=== PATIENT | female | born 1990 | race Caucasian/White ===

== ENCOUNTER 2020-02-25 14:00 | Outpatient (RCR) | payer OTHER, SELFPAY ==
--- NOTE | 2019-12-23 14:49 | P.PNPSP_ITS ---
Subjective Subjective Date of Service: 12/23/19 Reason For Visit: depression Interim History: Pt presents for follow up. Has not started the guanfacine as ordered after last visit. reports she has been sick for over one week with fever, chills, nausea. tested negative for flu and COVID. Will be picking up rx today and starting. Reinforced baseline vitals and onnce a week X2. Pt verbalized understanding. 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 Medication Compliance: Yes Side effects from medications: No Review of Systems Constitutional: Denies body ache(s), Denies fatigue, Denies malaise and Reports night sweats Psychiatric: Reports anxiety, Reports difficulty concentrating and Reports irritability Endocrine: Denies fatigue Mental Status Exam Mental Status Exam Mood Description: Calm Affect Description: Calm Speech Pattern: Clear Memory Description: Intact Thought Content: positive for Intact and positive for Goal Oriented Depressive Symptoms: Increased Irritability, Feelings of Guilt and Unhappiness Assessment & Plan Assessment & Plan (1) Major depressive disorder, recurrent, moderate: Status: Acute Code(s): F33.1 - Major depressive disorder, recurrent, moderate Assessment and Plan: No scripts necessary at this time/ Follow up 2 weeks Greater than 50% of the session was spent on counseling and/or coordination of care Discharge Plan Discharge Attending provider: Alayna Vasquez Medications: No Action citalopram [Celexa] 20 mg tablet 20 mg PO DAILY RF: 0 lamotrigine [Lamictal] 25 mg tablet 75 mg PO DAILY RF: 0 clonazepam [Klonopin] 0.5 mg tablet 0.5 mg PO DAILY PRN (Reason: anxiety) RF: 0 famotidine [Pepcid AC] 20 mg tablet 20 mg PO BID RF: 0 guanfacine 1 mg tablet 1 mg PO BEDTIME RF: 0
--- NOTE | 2020-02-29 16:31 | HO.OPPROGNO ---
Subjective Subjective Date of Service: 02/25/20 Reason For Visit: depression Interim History: Patient reports difficulties at home related to children being home with remote learning--as she is also enrolled in school. States her anxiety is pretty consistently present and finds that she is using Klonopin with much more regularity. Has been taking guangacine, but does not note any improvement in her ability to focus (circumstances adding to this as well). reports she continues to have racing heart and is being referred to cardiology by PCP Informed patient that outpatient will be closing by 05/2019--will consider transferring care to PCP if PCP agreeable. Medication Compliance: Yes Side effects from medications: No Review of Systems Constitutional: Reports as per HPI and Reports no additional constitutional complaints Mental Status Exam Mental Status Exam Level of Consciousness: Awake, Appropriate and Alert Patient Behavior: Appropriate Mood Description: Anxious Affect Description: Anxious Speech Pattern: Clear Thought Process: Rumination and Goal Oriented Thought Content: positive for Intact Depressive Symptoms: Increased Anxiety and Difficulty Concentrating Judgement: Good Discharge Plan Discharge Attending provider: Alayna Vasquez Medications: No Action famotidine [Pepcid AC] 20 mg tablet 20 mg PO BID RF: 0 citalopram [Celexa] 20 mg tablet 20 mg PO DAILY Qty: 30 RF: 4 clonazepam [Klonopin] 0.5 mg tablet 0.5 mg PO DAILY PRN (Reason: anxiety) Qty: 15 RF: 5 lamotrigine [Lamictal] 25 mg tablet 75 mg PO DAILY Qty: 90 RF: 4 guanfacine 1 mg tablet 2 mg PO BEDTIME Qty: 30 RF: 4 Assessment & Plan Assessment & Plan (1) Major depressive disorder, recurrent, moderate: Status: Acute Code(s): F33.1 - Major depressive disorder, recurrent, moderate Assessment and Plan: Increased guanfacine to 2mg QHS Will follow up with PCP reagrding possibility of transferring care Greater than 50% of the session was spent on counseling and/or coordination of care Telehealth Telehealth Location of provider rendering services: practice address Location of patient: address on file Patient Identification confirmed using: Name, : Yes Telehealth method: voice only Patient verbally consented to treatment: Yes Patient verbally consented to billing insurance company: Yes Time spent with patient (mins): 18
== END 2020-03-11 23:55 | disposition home or self-care (01) ==
LOC: HO.PAOS 14:00
PROVIDERS: Visit Provider Nurse Practitioner Psychiatric/Mental Health
DX: F33.1 Major depressive disorder, recurrent, moderate (principal); Z79.899 Other long term (current) drug therapy

== ENCOUNTER 2023-07-26 20:03 | Emergency (ER) | payer MEDICAID, SELFPAY ==
--- NOTE | ~2023-07-26 | XR_ITS ---
EXAMINATION: XR CHEST CLINICAL INFORMATION: Cough and chest pain COMPARISON: Previous chest x-ray October 2018 TECHNIQUE: Frontal view of the chest was obtained. FINDINGS: No significant abnormality is noted involving the heart, lungs, mediastinum, bony thorax or soft tissues. XR/XR chest 1V IMPRESSION: Unremarkable examination.
[2023-07-26 20:06] VITALS: BP 114/73; PULSE 91; RESP 18; TEMP 36.7; O2SAT 99; BMI 27.5
--- NOTE | 2023-07-26 20:12 | ECG_ITS ---
Test Reason : SOB Blood Pressure : / mmHG Vent. Rate : 071 BPM Atrial Rate : 071 BPM P-R Int : 162 ms QRS Dur : 082 ms QT Int : 394 ms P-R-T Axes : 076 078 062 degrees QTc Int : 428 ms Normal sinus rhythm with sinus arrhythmia Normal ECG When compared with ECG of 14-OCT-2018 18:52, No significant change was found Referred By: Generic ED Physician Electronically Signed By:CADY MANNING MD
--- NOTE | 2023-07-26 20:40 | ED_ITS ---
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 no fever no chills no change in atmosphere at home Related Data Home Medications ?Medication ?Instructions ?Recorded ?Confirmed famotidine 20 mg tablet (Pepcid AC) 20 mg PO BID 12/23/19 12/23/19 Previous Rx's ?Medication ?Instructions ?Recorded citalopram 20 mg tablet (Celexa) 20 mg PO DAILY #30 tabs 02/25/20 clonazepam 0.5 mg tablet (Klonopin) 0.5 mg PO DAILY PRN anxiety #15 02/25/20 tabs guanfacine 1 mg tablet 2 mg (2 x 1 mg) PO BEDTIME #30 tabs 02/25/20 lamotrigine 25 mg tablet (Lamictal) 75 mg (3 x 25 mg) PO DAILY #90 tabs 02/25/20 benzonatate 200 mg capsule 200 mg PO TID PRN cough #30 caps 07/26/23 cefuroxime axetil 500 mg tablet 500 mg PO BID 7 days #14 tabs 07/26/23 prednisone 20 mg tablet 40 mg (2 x 20 mg) PO DAILY #10 tabs 07/26/23 Allergies Allergy/AdvReac Type Severity Reaction Status Date / Time No Known Allergies Allergy Verified 07/26/23 20:11 Review of Systems 2 Review of Systems: Yes all other systems are reviewed and are negative [facility] Social History Social History Advance Directives: No Advance Directives Information Provided: No Do you have a plan to hurt others: No Plan Physical Exam ED Vital Signs: Vital Signs - 24 hr 07/26/23 20:06 07/26/23 22:38 07/26/23 22:41 Temperature 98.0 F 97.9 F Pulse Rate 91 99 Respiratory Rate 18 16 Blood Pressure 114/73 120/77 Pulse Oximetry 99 98 98 Oxygen Delivery Method Room Air Room Air Room Air 07/26/23 23:43 Temperature 97.9 F Pulse Rate 75 Respiratory Rate 16 Blood Pressure 115/71 Pulse Oximetry 98 Oxygen Delivery Method Room Air BMI result Body Mass Index 27.5 Appearance: Alert. Oriented X3. No acute distress. Eyes: No pallor or ENT: Pharynx normal. Oral Mucosa moist Neck: Normal inspection. Neck supple. CVS: Normal heart rate and rhythm. Pulses normal. Respiratory: No respiratory distress. Equal air entry bilateral, bilateral prolonged expiration with dry cough Abdomen: Soft and nontender. Bowel sounds are present, Skin: Skin warm and dry. Normal skin color. Normal skin turgor. Extremities: No lower extremity edema. No calf tenderness Neuro: Oriented X 3. No motor deficit. Course Course Course Narrative: RME performed by Zee Araya PA-C. Patient is a 33 year old assigned female at presenting to the emergency department with a cough and congestion. Detailed physical exam and review of systems are deferred to the superintendent custodian janitor. EKG, labs, imaging, and swabs ordered. Patient placed back in the waiting room pending room availability and results. Medications Administered Discontinued Medications Generic Name Dose Route Start Last Admin Trade Name Freq PRN Reason Stop Dose Admin Cefuroxime Axetil 500 mg 07/26/23 23:21 07/26/23 23:36 Cefuroxime Axetil 500 Mg Tablet PO 07/26/23 23:22 500 mg ONCE ONE Administration Dexamethasone 10 mg 07/26/23 23:21 07/26/23 23:36 Dexamethasone 2 Mg Tablet PO 07/26/23 23:22 10 mg ONCE ONE Administration Guaifenesin/Codeine Phosphate 10 ml 07/26/23 23:21 07/26/23 23:36 Guaifen/Codeine Sf 200/20/10ml 10 Ml Liquid PO 07/26/23 23:22 10 ml ONCE ONE Administration Medical Decision Making Lab Data [facility] Lab Attestation statement: I reviewed the patient's lab results. 07/26/23 20:49 07/26/23 20:49 Labs: Lab Results 07/26/23 Range/Units 20:49 WBC 6.8 (4.8-10.8) X10*3/uL RBC 4.17 L (4.20-5.50) X10*6/uL Hgb 11.7 L (12.0-16.0) g/dl Hct 35.1 L (37.0-47.0) % MCV 84.2 (80.0-98.0) fL MCH 28.1 (27.0-33.0) pg MCHC 33.3 (31.0-35.0) g/dl RDW 13.9 (11.0-16.0) % Plt Count 229 (160-400) X10*3/uL MPV 10.6 (9.4-12.3) fL Immature Gran % (Auto) 0.1 (0.0-0.4) % Neut % (Auto) 62.5 (45-73) % Lymph % (Auto) 31.1 (20-40) % [place] % (Auto) 3.4 (2-11) % Eos % (Auto) 2.5 (0-4) % Baso % (Auto) 0.4 (0-2) % Lymph # (Auto) 2.1 (1.2-4.9) X10*3/uL [place] # (Auto) 0.2 (0.1-1.2) X10*3/uL Eos # (Auto) 0.2 (0.0-0.4) X10*3/uL Baso # (Auto) 0.0 (0.0-0.2) X10*3/uL Abs Immat Gran (auto) 0.01 (0.00-0.03) X10*3/uL Absolute Neuts (auto) 4.2 (2.0-8.3) x10*3/uL Absolute Nucleated RBC 0.000 (0.0-0.012) X10*3/uL Nucleated RBC % (auto) 0.0 (0.0-0.2) /100WBC Sodium 140 (135-145) mmol/L Potassium 4.0 (3.3-5.1) mmol/L Chloride 106 (96-108) mmol/L Carbon Dioxide 27 (22-29) mmol/L Anion Gap 11 L (12-20) BUN 9 (9-16) mg/dL Creatinine 0.88 (0.5-1.4) mg/dL Estim Creat Clear Calc 87.0 Estimated GFR > 60 Random Glucose 107 (60-115) mg/dL Calcium 9.1 (8.4-10.2) mg/dL Total Bilirubin 0.2 (0.0-1.0) mg/dL AST 15 (5-31) U/L ALT 11 (0-31) U/L Alkaline Phosphatase 48 (39-117) U/L Troponin I High Sens < 2.7 (<3.5-17.0) ng/L Total Protein 7.3 (6.5-8.0) g/dL Albumin 4.5 (3.5-5.0) g/dL COVID-19 ([place]) Negative (Negative) COVID-19 Clin Com See Note Influenza Type A ([place]) Negative (Negative) Influenza Type B ([place]) Negative (Negative) Influenza A & B Note See Note Independent Interpretation I performed an independent interpretation of an: Plain X-Ray Radiology Impression Discussion of test interpretation with radiology: I have reviewed the radiologist's reading. Discharge Plan Discharge Clinical Impression: Bronchitis Patient Disposition: Home, Self-Care Instructions: Acute Bronchitis (ED) Additional Instructions: Take antibiotics as prescribed Prednisone and cough drops as prescribed Continue to use albuterol inhaler 2 puffs every 4-6 hours as needed Follow with your PCP Prescriptions: New benzonatate 200 mg capsule 200 mg PO TID PRN (Reason: cough) Qty: 30 0RF prednisone 20 mg tablet 40 mg PO DAILY Qty: 10 0RF cefuroxime axetil 500 mg tablet 500 mg PO BID 7 Days Qty: 14 0RF No Action famotidine [Pepcid AC] 20 mg tablet 20 mg PO BID citalopram [Celexa] 20 mg tablet 20 mg PO DAILY Qty: 30 4RF clonazepam [Klonopin] 0.5 mg tablet 0.5 mg PO DAILY PRN (Reason: anxiety) Qty: 15 5RF lamotrigine [Lamictal] 25 mg tablet 75 mg PO DAILY Qty: 90 4RF guanfacine 1 mg tablet 2 mg PO BEDTIME Qty: 30 4RF Stand Alone Forms: Work/School Release Interventions: ED Discharge Assessment Last Done: 07/26/23 23:43 Discharge Date/Time: 07/26/23 23:44 Print Language: Dutch
[2023-07-26 20:55] LABS: MANUAL DIFF FLAG NO
[2023-07-26 20:56] LABS: Basophils Percent Auto 0.4 % (0-2); Eosinophils Absolute Auto 0.2 X10*3/uL (0.0-0.4); Eosinophils Percent Auto 2.5 % (0-4); Hematocrit 35.1 % (37.0-47.0); Hemoglobin 11.7 g/dl (12.0-16.0); Imm Gran Abs Auto 0.01 X10*3/uL (0.00-0.03); Imm Gran Pct Auto 0.1 % (0.0-0.4); Lymphocytes Absolute Auto 2.1 X10*3/uL (1.2-4.9); Lymphocytes Percent Auto 31.1 % (20-40); Mean Corpuscular HGB Conc 33.3 g/dl (31.0-35.0); Mean Corpuscular Hemoglobin 28.1 pg (27.0-33.0); Mean Corpuscular Volume 84.2 fL (80.0-98.0); Mean Platelet Volume 10.6 fL (9.4-12.3); Monocytes Absolute Auto 0.2 X10*3/uL (0.1-1.2); Monocytes Percent Auto 3.4 % (2-11); Neutrophils Absolute Auto 4.2 x10*3/uL (2.0-8.3); Neutrophils Percent Auto 62.5 % (45-73); Platelet Count 229 X10*3/uL (160-400); Red Blood Count 4.17 X10*6/uL (4.20-5.50); Red Cell Distribution Width 13.9 % (11.0-16.0); White Blood Count 6.8 X10*3/uL (4.8-10.8)
[2023-07-26 21:14] LABS: Alanine Aminotransferase 11 U/L (0-31); Albumin Level 4.5 g/dL (3.5-5.0); Alkaline Phosphatase 48 U/L (39-117); Anion Gap 11 (12-20); Aspartate Amino Transferase 15 U/L (5-31); Bilirubin Total 0.2 mg/dL (0.0-1.0); Blood Urea Nitrogen 9 mg/dL (9-16); COVID-19 Test Negative (Negative); Calcium 9.1 mg/dL (8.4-10.2); Carbon Dioxide 27 mmol/L (22-29); Chloride 106 mmol/L (96-108); Estimated Glomerular Filt Rate > 60; Glucose Random 107 mg/dL (60-115); IDNOW Serial# 08D9AD1C; IDNOW Serial# 152EDE1D; Influenza A Negative (Negative); Influenza B2 Negative (Negative); Sodium 140 mmol/L (135-145); Total Protein 7.3 g/dL (6.5-8.0)
[2023-07-26 21:23] LABS: Troponin-I High Sensitivity < 2.7 ng/L (<3.5-17.0)
[2023-07-26 22:38] VITALS: O2SAT 98
[2023-07-26 22:41] VITALS: BP 120/77; PULSE 99; RESP 16; TEMP 36.6; O2SAT 98
[2023-07-26] MEDS: guaiFEN/Codeine SF 200/20/10ML 10 ML LIQUID PO (23:36)
[2023-07-26] MEDS: cefuroxime axetiL 500 MG TABLET PO (23:36)
[2023-07-26] MEDS: dexAMETHasone 2 MG TABLET 10 MG PO (23:36)
[2023-07-26 23:43] VITALS: BP 115/71; PULSE 75; RESP 16; TEMP 36.6; O2SAT 98
== END 2023-07-26 23:44 | disposition home or self-care (01) ==
PROVIDERS: Emergency Provider Internal Medicine
DX: J40 Bronchitis, not specified as acute or chronic (principal); Z11.52 Encounter for screening for COVID-19
CPT/HCPCS: 71045; 80053; 84484; 85025; 87502; 87635; 93005; 99283; 99285; J8540

== ENCOUNTER → 2023-07-26 20:12 | Outpatient (BNV) | payer MEDICAID, SELFPAY | PROVIDERS: Emergency Provider Internal Medicine; Visit Provider Internal Medicine Cardiovascular Disease | DX: R06.02 Shortness of breath (principal) | CPT/HCPCS: 93010 ==

== ENCOUNTER 2023-12-29 16:35 | Emergency (ER) | payer MEDICAID, SELFPAY ==
--- NOTE | ~2023-12-29 | CT_ITS ---
EXAMINATION: CT HEAD WITHOUT CONTRAST CLINICAL INFORMATION: Left facial numbness COMPARISON: None available. TECHNIQUE: Contiguous axial imaging was performed from the skull base to vertex without intravenous administration of contrast. This CT examination was performed using dose optimization techniques as appropriate, variously including the following: *Automated exposure control *Adjustment of mA and/or kV according to patient size (this includes techniques or standardized protocols for targeted exams where dose is matched to indication/reason for exam; i.e. extremities or head) *Use of iterative reconstruction technique DLP: 642 mGy-cm RESULTS: There is no evidence of acute intracranial hemorrhage, acute large vessel infarct, midline shift or mass effect. The harry-white differentiation is preserved. The ventricles and sulci are within normal limits in size and configuration. There is no evidence of hydrocephalus. There are no extraaxial collections. Osseous structures are intact. Paranasal sinuses and mastoid air cells are well aerated. CT/CT head/brain wo IV con IMPRESSION: Unremarkable non-contrast CT of the brain. Electronically signed by: Michelle Maria MD 12/29/2023 05:36 PM EDT
[2023-12-29 16:36] VITALS: BP 113/82; PULSE 89; RESP 18; TEMP 37.1; O2SAT 98; BMI 29.2
--- NOTE | 2023-12-29 16:38 | ED_ITS ---
HPI - Skin/Abscess/Foreign Bdy General Chief complaint: General Medical Stated complaint: shingles on face?? Time Seen by Provider: 12/29/23 21:07 Source: patient Mode of arrival: ambulatory Limitations: no limitations History of Present Illness ED Provider: breanna BYNUM narrative: Patient otherwise healthy noticed vesicular rash on the left lower change with pain in the left side of the face since earlier today no history of shingles in the past Related Data Home Medications ?Medication ?Instructions ?Recorded ?Confirmed famotidine 20 mg tablet (Pepcid AC) 20 mg PO BID 12/23/19 12/23/19 Previous Rx's ?Medication ?Instructions ?Recorded citalopram 20 mg tablet (Celexa) 20 mg PO DAILY #30 tabs 02/25/20 clonazepam 0.5 mg tablet (Klonopin) 0.5 mg PO DAILY PRN anxiety #15 02/25/20 tabs guanfacine 1 mg tablet 2 mg (2 x 1 mg) PO BEDTIME #30 tabs 02/25/20 lamotrigine 25 mg tablet (Lamictal) 75 mg (3 x 25 mg) PO DAILY #90 tabs 02/25/20 benzonatate 200 mg capsule 200 mg PO TID PRN cough #30 caps 07/26/23 cefuroxime axetil 500 mg tablet 500 mg PO BID 7 days #14 tabs 07/26/23 prednisone 20 mg tablet 40 mg (2 x 20 mg) PO DAILY #10 tabs 07/26/23 ibuprofen 600 mg tablet 600 mg PO Q6H PRN fever or pain 12/29/23 #30 tabs valacyclovir 1 gram tablet 1,000 mg PO TID #20 tabs 12/29/23 (Valtrex) Allergies Allergy/AdvReac Type Severity Reaction Status Date / Time No Known Allergies Allergy Verified 12/29/23 16:40 Review of Systems 2 Review of Systems: Yes all other systems are reviewed and are negative PMFSH Social History Social History Smoked in Last 30 Days: No Use of substances other than those prescribed or required for medical reasons: No Advance Directives: No Advance Directives Information Provided: No Do you have a plan to hurt others: No Plan Physical Exam 2 Vital Signs: Vital Signs: Last Vital Signs Temp 97.7 F 12/29/23 21:40 Pulse 72 12/29/23 21:40 Resp 18 12/29/23 21:40 BP 115/80 12/29/23 21:40 Pulse Ox 98 12/29/23 21:40 O2 Del Method Room Air 12/29/23 21:40 BMI result Body Mass Index 29.2 Appearance: Alert. Oriented X3. No acute distress. ENT: Pharynx normal. Oral Mucosa moist vesicular rash left side of the chin Neck: Normal inspection. Neck supple. CVS: Normal heart rate and rhythm. Pulses normal. Respiratory: No respiratory distress. Equal air entry bilateral, no wheezing/rales/rhonchi Skin: Skin warm and dry. Normal skin color. Normal skin turgor. Extremities: No lower extremity edema. Neuro: Oriented X 3. Course Course Course Narrative: This is a Rapid Medical Exam performed in triage by Justina Duenas PA-C. Full HPI, ROS and PE to be performed by primary ED provider. 33-year-old female with no significant past medical history presenting to the ED c/o left facial tingling/numbness noted this morning at 09:30 since waking w/ radiation to scalp w/ L eye irritation and blurry vision. Also feels like L ear in involved. PE: Acne noted to left chin which patient reports is new. Cranial nerves intact. No other focal deficits. No crusted over lesions or open sores Plan: EKG, labs, head CT Medications Administered Discontinued Medications Generic Name Dose Route Start Last Admin Trade Name Freq PRN Reason Stop Dose Admin Valacyclovir HCl 1,000 mg 12/29/23 21:23 12/29/23 21:33 Valacyclovir Hcl 1,000 Mg Tablet PO 12/29/23 21:24 1,000 mg ONCE ONE Administration Medical Decision Making Medical Decision Making [facility] Narrative: Patient's herpetic rash will prescribe acyclovir Lab Data 12/29/23 17:07 12/29/23 17:07 Labs: Lab Results 12/29/23 Range/Units 17:07 WBC 9.6 (4.8-10.8) X10*3/uL RBC 3.92 L (4.20-5.50) X10*6/uL Hgb 10.9 L (12.0-16.0) g/dl Hct 33.5 L (37.0-47.0) % MCV 85.5 (80.0-98.0) fL MCH 27.8 (27.0-33.0) pg MCHC 32.5 (31.0-35.0) g/dl RDW 14.1 (11.0-16.0) % Plt Count 235 (160-400) X10*3/uL MPV 10.7 (9.4-12.3) fL Immature Gran % (Auto) 0.4 (0.0-0.4) % Neut % (Auto) 57.1 (45-73) % Lymph % (Auto) 35.3 (20-40) % [place] % (Auto) 6.4 (2-11) % Eos % (Auto) 0.4 (0-4) % Baso % (Auto) 0.4 (0-2) % Lymph # (Auto) 3.4 (1.2-4.9) X10*3/uL [place] # (Auto) 0.6 (0.1-1.2) X10*3/uL Eos # (Auto) 0.0 (0.0-0.4) X10*3/uL Baso # (Auto) 0.0 (0.0-0.2) X10*3/uL Abs Immat Gran (auto) 0.04 H (0.00-0.03) X10*3/uL Absolute Neuts (auto) 5.5 (2.0-8.3) x10*3/uL Absolute Nucleated RBC 0.000 (0.0-0.012) X10*3/uL Nucleated RBC % (auto) 0.0 (0.0-0.2) /100WBC PT 11.0 (10.9-12.4) SEC INR 0.9 (0.9-1.1) Sodium 138 (135-145) mmol/L Potassium 3.5 (3.3-5.1) mmol/L Chloride 103 (96-108) mmol/L Carbon Dioxide 26 (22-29) mmol/L Anion Gap 13 (12-20) BUN 19 H (9-16) mg/dL Creatinine 0.87 (0.5-1.4) mg/dL Estim Creat Clear Calc 90.7 Estimated GFR > 60 Random Glucose 96 (60-115) mg/dL Calcium 8.6 (8.4-10.2) mg/dL Magnesium 2.2 (1.6-2.6) mg/dL Total Bilirubin 0.3 (0.0-1.0) mg/dL Direct Bilirubin 0.1 (0.0-0.5) mg/dL AST 13 (5-31) U/L ALT 14 (0-31) U/L Alkaline Phosphatase 43 (39-117) U/L Total Protein 6.6 (6.5-8.0) g/dL Albumin 4.3 (3.5-5.0) g/dL Urine Test NEGATIVE (NEGATIVE) Influenza Type A (PCR) NEGATIVE (Negative) Influenza Type B (PCR) NEGATIVE (Negative) RSV RNA Qual (PCR) NEGATIVE (Negative) SARS-CoV-2 RNA (RT-PCR) NEGATIVE (Negative) Discharge Plan Discharge Clinical Impression: Herpes zoster Patient Disposition: Home, Self-Care Instructions: Shingles (ED) Additional Instructions: Take medication as prescribed for 7 days Care as advised ibuprofen for pain Prescriptions: New valacyclovir [Valtrex] 1 gram tablet 1,000 mg PO TID Qty: 20 0RF ibuprofen 600 mg tablet 600 mg PO Q6H PRN (Reason: fever or pain) Qty: 30 0RF No Action famotidine [Pepcid AC] 20 mg tablet 20 mg PO BID citalopram [Celexa] 20 mg tablet 20 mg PO DAILY Qty: 30 4RF clonazepam [Klonopin] 0.5 mg tablet 0.5 mg PO DAILY PRN (Reason: anxiety) Qty: 15 5RF lamotrigine [Lamictal] 25 mg tablet 75 mg PO DAILY Qty: 90 4RF guanfacine 1 mg tablet 2 mg PO BEDTIME Qty: 30 4RF benzonatate 200 mg capsule 200 mg PO TID PRN (Reason: cough) Qty: 30 0RF prednisone 20 mg tablet 40 mg PO DAILY Qty: 10 0RF cefuroxime axetil 500 mg tablet 500 mg PO BID 7 Days Qty: 14 0RF Interventions: ED Discharge Assessment Last Done: 12/29/23 21:40 Discharge Date/Time: 12/29/23 21:40 Print Language: Nigerian
--- NOTE | 2023-12-29 16:42 | ECG_ITS ---
Test Reason : LEFT FACIAL NUMBNESS Blood Pressure : / mmHG Vent. Rate : 076 BPM Atrial Rate : 076 BPM P-R Int : 152 ms QRS Dur : 076 ms QT Int : 366 ms P-R-T Axes : 074 067 052 degrees QTc Int : 411 ms Normal sinus rhythm Normal ECG When compared with ECG of 26-JUL-2023 21:30, No significant change was found Referred By: Justina Duenas Electronically Signed By:HIREN VINES
[2023-12-29 17:16] LABS: MANUAL DIFF FLAG NO
[2023-12-29 17:30] LABS: Alanine Aminotransferase 14 U/L (0-31); Albumin Level 4.3 g/dL (3.5-5.0); Alkaline Phosphatase 43 U/L (39-117); Anion Gap 13 (12-20); Aspartate Amino Transferase 13 U/L (5-31); Bilirubin Direct 0.1 mg/dL (0.0-0.5); Bilirubin Total 0.3 mg/dL (0.0-1.0); Blood Urea Nitrogen 19 mg/dL (9-16); Calcium 8.6 mg/dL (8.4-10.2); Carbon Dioxide 26 mmol/L (22-29); Chloride 103 mmol/L (96-108); Creatinine Clr Calc Pharmacy 90.7; Estimated Glomerular Filt Rate > 60; Glucose Random 96 mg/dL (60-115); Magnesium 2.2 mg/dL (1.6-2.6); Potassium 3.5 mmol/L (3.3-5.1); Sodium 138 mmol/L (135-145); Total Protein 6.6 g/dL (6.5-8.0)
[2023-12-29 17:31] LABS: UPreg QC Valid YES; Urine Pregnancy NEGATIVE (NEGATIVE)
[2023-12-29 17:35] LABS: INTERNATIONAL NORM RATIO 0.9 (0.9-1.1)
[2023-12-29 17:40] LABS: Basophils Percent Auto 0.4 % (0-2); Eosinophils Percent Auto 0.4 % (0-4); Hematocrit 33.5 % (37.0-47.0); Hemoglobin 10.9 g/dl (12.0-16.0); Imm Gran Abs Auto 0.04 X10*3/uL (0.00-0.03); Imm Gran Pct Auto 0.4 % (0.0-0.4); Lymphocytes Absolute Auto 3.4 X10*3/uL (1.2-4.9); Lymphocytes Percent Auto 35.3 % (20-40); Mean Corpuscular HGB Conc 32.5 g/dl (31.0-35.0); Mean Corpuscular Hemoglobin 27.8 pg (27.0-33.0); Mean Corpuscular Volume 85.5 fL (80.0-98.0); Mean Platelet Volume 10.7 fL (9.4-12.3); Monocytes Absolute Auto 0.6 X10*3/uL (0.1-1.2); Monocytes Percent Auto 6.4 % (2-11); Neutrophils Absolute Auto 5.5 x10*3/uL (2.0-8.3); Neutrophils Percent Auto 57.1 % (45-73); Platelet Count 235 X10*3/uL (160-400); Red Blood Count 3.92 X10*6/uL (4.20-5.50); Red Cell Distribution Width 14.1 % (11.0-16.0); White Blood Count 9.6 X10*3/uL (4.8-10.8)
[2023-12-29 18:06] LABS: Influenza A PCR NEGATIVE (Negative); Influenza B PCR NEGATIVE (Negative); Resp Syncy Virus RNA Qual PCR NEGATIVE (Negative); SARS COV2 PCR INHOUSE NEGATIVE (Negative)
--- NOTE | 2023-12-29 18:55 | PC.NURSE ---
report from Cristal PISANO, aaume care of pt at this time
[2023-12-29 19:10] VITALS: BP 109/70; PULSE 72; RESP 16; TEMP 36.5; O2SAT 99
[2023-12-29] MEDS: valACYclovir HCL 1,000 MG TABLET 1000 MG PO (21:33)
[2023-12-29 21:40] VITALS: BP 115/80; PULSE 72; RESP 18; TEMP 36.5; O2SAT 98
[2023-12-31 11:03] LABS: Lyme Abs Screen <0.90 index
== END 2023-12-29 21:40 | disposition home or self-care (01) ==
PROVIDERS: Physician Assistant; Emergency Provider Internal Medicine
DX: B02.9 Zoster without complications (principal); Z79.899 Other long term (current) drug therapy
CPT/HCPCS: 0241U; 70450; 80048; 80076; 81025; 83735; 85025; 85610; 86617; 86618; 93005; 99284

== ENCOUNTER → 2023-12-29 16:42 | Outpatient (BNV) | payer MEDICAID, SELFPAY | PROVIDERS: Emergency Provider Internal Medicine; Visit Provider Internal Medicine | DX: G51.9 Disorder of facial nerve, unspecified (principal) | CPT/HCPCS: 93010 ==

== ENCOUNTER 2024-06-12 17:43 | Emergency (ER) | payer MEDICAID, SELFPAY ==
--- NOTE | ~2024-06-12 | XR_ITS ---
CLINICAL HISTORY: chest pain Chest Radiographs, 2 views Comparison: 07/26/23 Findings: No cardiomegaly. Normal mediastinal contours. No pneumothorax. No opacity. No pleural effusion. Normal upper abdomen. No acute fracture. Impression: No acute findings. This document has been electronically signed by: Asha Yan MD on 06/12/2024 19:22:11
--- NOTE | 2024-06-12 17:45 | ECG_ITS ---
Test Reason : CHEST PAIN Blood Pressure : */* mmHG Vent. Rate : 118 BPM Atrial Rate : 118 BPM P-R Int : 134 ms QRS Dur : 74 ms QT Int : 314 ms P-R-T Axes : 77 81 48 degrees QTcB Int : 440 ms Sinus tachycardia Nonspecific ST abnormality Abnormal ECG When compared with ECG of 29-Dec-2023 16:53, Vent. rate has increased by 42 bpm Non-specific change in ST segment in Inferior leads Referred By: Generic ED Physician Electronically Signed By: HIREN VINES
[2024-06-12 18:00] VITALS: BP 115/78; PULSE 94; RESP 20; TEMP 37.4; O2SAT 98; BMI 27.4
--- NOTE | 2024-06-12 18:01 | ED.GENADULT ---
HPI - General Adult General Chief complaint: Chest Pain Stated complaint: chest /left arm pain Time Seen by Provider: 06/12/24 21:45 History of Present Illness ED Provider: Dr. Terrance Lima HPI narrative: 34-year-old female who presents emergency department for evaluation of palpitations x4 days. When I went into the room the patient had eloped. Related Data Home Medications ?Medication ?Instructions ?Recorded ?Confirmed famotidine 20 mg tablet (Pepcid AC) 20 mg PO BID 12/23/19 12/23/19 Previous Rx's ?Medication ?Instructions ?Recorded citalopram 20 mg tablet (Celexa) 20 mg PO DAILY #30 tabs 02/25/20 clonazepam 0.5 mg tablet (Klonopin) 0.5 mg PO DAILY PRN anxiety #15 02/25/20 tabs guanfacine 1 mg tablet 2 mg (2 x 1 mg) PO BEDTIME #30 tabs 02/25/20 lamotrigine 25 mg tablet (Lamictal) 75 mg (3 x 25 mg) PO DAILY #90 tabs 02/25/20 benzonatate 200 mg capsule 200 mg PO TID PRN cough #30 caps 07/26/23 cefuroxime axetil 500 mg tablet 500 mg PO BID 7 days #14 tabs 07/26/23 prednisone 20 mg tablet 40 mg (2 x 20 mg) PO DAILY #10 tabs 07/26/23 ibuprofen 600 mg tablet 600 mg PO Q6H PRN fever or pain 12/29/23 #30 tabs valacyclovir 1 gram tablet 1,000 mg PO TID #20 tabs 12/29/23 (Valtrex) Allergies Allergy/AdvReac Type Severity Reaction Status Date / Time No Known Allergies Allergy Verified 06/12/24 18:05 [facility] Social History Social History Do you have a plan to hurt others: No Plan Physical Exam ED Vital Signs: Vital Signs - 24 hr 06/12/24 18:00 06/12/24 20:47 Temperature 99.4 F Pulse Rate 94 76 Respiratory Rate 20 21 H Blood Pressure 115/78 103/72 Pulse Oximetry 98 99 Oxygen Delivery Method Room Air Room Air BMI result Body Mass Index 27.4 Course Course Course Narrative: This is a rapid medical exam performed by Omkar Jerez NP: Additional HPI, ROS, PE not included below will be deferred to primary provider. 06/12/24 18:02 Patient is a 34-year-old female presenting with complaint of chest pain, palpitations, left arm and back pain. Reports history of anxiety, took her PRN med at 2pm, states did not help. Feels lightheaded, short of breath. Not on OCPs. Plan: EKG,labs, cxr Medical Decision Making Lab Data 06/12/24 18:15 06/12/24 18:15 Labs: Lab Results 06/12/24 06/12/24 Range/Units 18:15 20:38 WBC 8.6 (4.8-10.8) X10*3/uL RBC 4.24 (4.20-5.50) X10*6/uL Hgb 11.7 L (12.0-16.0) g/dl Hct 35.7 L (37.0-47.0) % MCV 84.2 (80.0-98.0) fL MCH 27.6 (27.0-33.0) pg MCHC 32.8 (31.0-35.0) g/dl RDW 14.2 (11.0-16.0) % Plt Count 238 (160-400) X10*3/uL MPV 10.2 (9.4-12.3) fL Immature Gran % (Auto) 0.3 (0.0-0.4) % Neut % (Auto) 71.9 (45-73) % Lymph % (Auto) 22.5 (20-40) % [place] % (Auto) 4.3 (2-11) % Eos % (Auto) 0.5 (0-4) % Baso % (Auto) 0.5 (0-2) % Lymph # (Auto) 1.9 (1.2-4.9) X10*3/uL [place] # (Auto) 0.4 (0.1-1.2) X10*3/uL Eos # (Auto) 0.0 (0.0-0.4) X10*3/uL Baso # (Auto) 0.0 (0.0-0.2) X10*3/uL Abs Immat Gran (auto) 0.03 (0.00-0.03) X10*3/uL Absolute Neuts (auto) 6.2 (2.0-8.3) x10*3/uL Absolute Nucleated RBC 0.000 (0.0-0.012) X10*3/uL Nucleated RBC % (auto) 0.0 (0.0-0.2) /100WBC PT 11.5 (10.9-12.4) SEC INR 1.0 (0.9-1.1) Sodium 140 (135-145) mmol/L Potassium 3.6 (3.3-5.1) mmol/L Chloride 110 H (96-108) mmol/L Carbon Dioxide 23 (22-29) mmol/L Anion Gap 11 L (12-20) BUN 12 (9-16) mg/dL Creatinine 0.79 (0.5-1.4) mg/dL Estim Creat Clear Calc 99.6 Estimated GFR > 60 Random Glucose 92 (60-115) mg/dL Calcium 9.5 D (8.4-10.2) mg/dL Magnesium 2.0 (1.6-2.6) mg/dL Total Bilirubin 0.4 (0.0-1.0) mg/dL AST 18 (5-31) U/L ALT 10 (0-31) U/L Alkaline Phosphatase 42 (39-117) U/L Troponin I High Sens < 2.7 < 2.7 (<3.5-17.0) ng/L Total Protein 7.2 (6.5-8.0) g/dL Albumin 4.6 (3.5-5.0) g/dL TSH 2.79 (0.32-4.0) uIU/mL Beta HCG, Quant < 2 mIU/mL Independent Interpretation I performed an independent interpretation of an: EKG and Plain X-Ray Interpretation: my independent interpretation patient's 12 EKG done on 06/12/2024 at 17:45 hours is as follows: Sinus tachycardia with a rate of 118, normal FL interval, QRS duration QTC interval, artifact in the baseline makes this EKG difficult to interpret but no significant ST segment elevation or depression is noted, no significant T-wave abnormalities were noted Radiology Impression Discussion of test interpretation with radiology: I have reviewed the radiologist's reading. Radiologist Impression: Chest Radiographs, 2 views Comparison: 07/26/23 Findings: No cardiomegaly. Normal mediastinal contours. No pneumothorax. No opacity. No pleural effusion. Normal upper abdomen. No acute fracture. Impression: No acute findings. This document has been electronically signed by: Asha Yan MD on 06/12/2024 19:22:11 Discharge Plan Discharge Clinical Impression: Palpitations Patient Disposition: Elopement Prescriptions: No Action famotidine [Pepcid AC] 20 mg tablet 20 mg PO BID citalopram [Celexa] 20 mg tablet 20 mg PO DAILY Qty: 30 4RF clonazepam [Klonopin] 0.5 mg tablet 0.5 mg PO DAILY PRN (Reason: anxiety) Qty: 15 5RF lamotrigine [Lamictal] 25 mg tablet 75 mg PO DAILY Qty: 90 4RF guanfacine 1 mg tablet 2 mg PO BEDTIME Qty: 30 4RF benzonatate 200 mg capsule 200 mg PO TID PRN (Reason: cough) Qty: 30 0RF prednisone 20 mg tablet 40 mg PO DAILY Qty: 10 0RF cefuroxime axetil 500 mg tablet 500 mg PO BID 7 Days Qty: 14 0RF valacyclovir [Valtrex] 1 gram tablet 1,000 mg PO TID Qty: 20 0RF ibuprofen 600 mg tablet 600 mg PO Q6H PRN (Reason: fever or pain) Qty: 30 0RF Print Language: Spanish
[2024-06-12 18:18] LABS: MANUAL DIFF FLAG NO
[2024-06-12 18:25] LABS: Basophils Percent Auto 0.5 % (0-2); Eosinophils Percent Auto 0.5 % (0-4); Hematocrit 35.7 % (37.0-47.0); Hemoglobin 11.7 g/dl (12.0-16.0); Imm Gran Abs Auto 0.03 X10*3/uL (0.00-0.03); Imm Gran Pct Auto 0.3 % (0.0-0.4); Lymphocytes Absolute Auto 1.9 X10*3/uL (1.2-4.9); Lymphocytes Percent Auto 22.5 % (20-40); Mean Corpuscular HGB Conc 32.8 g/dl (31.0-35.0); Mean Corpuscular Hemoglobin 27.6 pg (27.0-33.0); Mean Corpuscular Volume 84.2 fL (80.0-98.0); Mean Platelet Volume 10.2 fL (9.4-12.3); Monocytes Absolute Auto 0.4 X10*3/uL (0.1-1.2); Monocytes Percent Auto 4.3 % (2-11); Neutrophils Absolute Auto 6.2 x10*3/uL (2.0-8.3); Neutrophils Percent Auto 71.9 % (45-73); Platelet Count 238 X10*3/uL (160-400); Red Blood Count 4.24 X10*6/uL (4.20-5.50); Red Cell Distribution Width 14.2 % (11.0-16.0); White Blood Count 8.6 X10*3/uL (4.8-10.8)
[2024-06-12 18:34] LABS: Anion Gap 11 (12-20)
[2024-06-12 18:37] LABS: Alanine Aminotransferase 10 U/L (0-31); Albumin Level 4.6 g/dL (3.5-5.0); Alkaline Phosphatase 42 U/L (39-117); Aspartate Amino Transferase 18 U/L (5-31); Bilirubin Total 0.4 mg/dL (0.0-1.0); Blood Urea Nitrogen 12 mg/dL (9-16); Calcium 9.5 mg/dL (8.4-10.2); Carbon Dioxide 23 mmol/L (22-29); Chloride 110 mmol/L (96-108); Creatinine Clr Calc Pharmacy 99.6; Estimated Glomerular Filt Rate > 60; Glucose Random 92 mg/dL (60-115); Potassium 3.6 mmol/L (3.3-5.1); Sodium 140 mmol/L (135-145); Total Protein 7.2 g/dL (6.5-8.0)
[2024-06-12 18:39] LABS: Prothrombin Time 11.5 SEC (10.9-12.4)
[2024-06-12 18:41] LABS: Troponin-I High Sensitivity < 2.7 ng/L (<3.5-17.0)
[2024-06-12 18:44] LABS: HCG Quantitative < 2 mIU/mL
[2024-06-12 19:03] LABS: TSH reflex Free T4 2.79 uIU/mL (0.32-4.0)
[2024-06-12 20:47] VITALS: BP 103/72; PULSE 76; RESP 21; O2SAT 99
[2024-06-12 21:03] LABS: Troponin-I High Sensitivity < 2.7 ng/L (<3.5-17.0)
--- NOTE | 2024-06-12 21:51 | PC.NURSE ---
amie doe, charge nurse jeffrey and dr matthews notifed.
--- OUTSIDE RECORDS SUMMARY | 2024-06-12 22:22 | XMS_ITS | Data Portability ---
Author Organization [facility], [id number] Address [address] [place] [address] Assessment No assessment recorded. Plan of Treatment Reminders Order Date Submit Date Provider Last Modified By Organization Details Last Modified Time Details Appointments None record ed. Lab None record ed. Referral None record ed. Procedures None record ed. Surgeries None record ed. Imaging None record ed. Medication Orders None record ed. Patient TargetsNo targets recorded. Patient InstructionsNo instructions recorded. Reason for Referral None Reported. Procedures Surgical History Date Name Laterality Status Provider Name and Address Organization Details Recorded Time OC-UDS Send Out Template NON DOT completed Azul Ma[facility] 11/28/2023 16:19:24 Imaging Results None recorded. Procedure Notes None recorded. Medical Equipment None Reported. Medications Name Sig Start Date Stop Date Status Note LastModified by Organization Details LastModified Time citalopram 40 mg tablet TAKE 1 TABLET BY MOUTH NIGHTLY AT BEDTIME. active Not Available Not Available No t Available fluconazole 150 mg tablet TAKE ONE TABLET BY MOUTH ONCE. active Not Available Not Available Not Available benzonatate 200 mg capsule TAKE ONE CAPSULE BY MOUTH THREE TIMES A DAY NEEDED FOR COUGH active Not Available Not Available No t Available metronidazol e 0.75 % (37.5 mg/5 gram) vaginal gel APPLY 1 APPLICATION VAGINALLY 2 TIMES A WEEK FOR 6 MONTHS. active Not Available Not Available No t Available prednisone 20 mg tablet TAKE 2 TABLETS 40 MG) BY MOUTH DAILY. active Not Available Not Available No t Available clonazepam 0.5 mg tablet TAKE ONE TABLET BY MOUTH TWICE A DAY active Not Available Not Available No t Available metronidazol e 500 mg tablet TAKE ONE TABLET BY MOUTH EVERY 12 HOURS FOR 7 DAYS active Not Available Not Available N ot Available calcipotrien e 0.005 % scalp solution APPLY TO SCALP TWO TIMES A DAY NEEDED FOR FLARES, ALTERNATING WITH STEROID. active Not Available Not Available No t Available cefuroxime axetil 500 mg tablet TAKE ONE TABLET BY MOUTH TWICE A DAY FOR 7 DAYS active Not Available Not Available No t Available amoxicillin 875 mg-potassium clavulanate 125 mg tablet TAKE ONE TABLET BY MOUTH TWICE A DAY FOR 7 DAYS active Not Available Not Available No t Available Ventolin HFA 90 mcg/actuatio n aerosol inhaler INHALE TWO PUFFS BY MOUTH EVERY 4 TO 6 HOURS NEEDED FOR DYSPNEA active Not Available Not Available No t Available Otezla 30 mg tablet active Not Available Not Available Not Available Vitals None Recorded Social History None recorded. Functional Status None recorded. Mental Status None recorded. Family History Nothing Reported. Medical History No medical history recorded. Gynecological HistoryNo gynecological history recorded. Obstetrics History GPAL:G 0 P 0 0 0 0 Past Encounters Encounter ID Performer Location Encounter Start Date Encounter Closed Date Diagnosis/Indication Diagnosis SNOMED-CT Code Diagnosis ICD10 Code Diagnosis Note [id number] [address] [place] [phone] 05/24/2015 17:59:54 05/24/2015 18:57:35 [id number] [address] [place] [phone] 01/06/2018 11:45:40 01/06/2018 12:31:39 [id number] [address] [place] [address] 07/17/2015 13:42:50 07/17/2015 14:08:35 [id number] [address] [address] [place] [address] 03/23/2018 11:46:07 03/23/2018 12:22:31 [id number] [address] [place] [address] 10/18/2017 18:44:48 10/18/2017 19:19:00 [id number] [address] [place] [phone] 09/07/2015 13:36:02 09/07/2015 14:51:10 [id number] [address] [facility] [place] [address] 06/23/2015 14:16:16 06/23/2015 15:40:21 [id number] [address] [facility] [place] [address] 01/29/2016 17:18:49 01/29/2016 17:55:31 [id number] [address] [facility] [place] [address] 04/26/2016 15:07:53 04/26/2016 16:24:42 [id number] [address] [facility] [place] [address] 10/18/2020 10:23:29 10/18/2020 12:07:06 [id number] [facility] 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, 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 [address] [address] 11/28/2023 15:56:43 11/28/2023 16:21:32 History and physical examination, occupation 170477191 Z02.1 Health Concerns Section Related Observation LastModified by Organization Detai ls LastModified Time None Recorded Concern Status LastModified by Organization Details LastModified Time None Recorded Advance Directives Directive None Recorded Payers Encounter Date Sequence Insurance Name Policy Number Policy Iverson Covered Member ID Iverson Member ID Guarantor Name 10/18/2020 1 [place] [facility] PRIOR TO 06/10/2022 - [facility] (MEDICAID) Susan Cordero [id number] Susan Cordero 11/28/2023 OC-ESCREEN Susan Cordero [id number] Susan Cordero OBGyn Episode No OBEpisode recorded.
== END 2024-06-12 22:20 | disposition left against medical advice (07) ==
PROVIDERS: Registered Nurse Emergency; Emergency Provider Emergency Medicine Emergency Medical Services
DX: R00.2 Palpitations (principal); Z79.899 Other long term (current) drug therapy
CPT/HCPCS: 36415; 71046; 80053; 83735; 84443; 84484; 84702; 85025; 85610; 93005; 99283; 99284

== ENCOUNTER → 2024-06-12 17:45 | Outpatient (BNV) | payer MEDICAID, SELFPAY | PROVIDERS: Emergency Provider Emergency Medicine Emergency Medical Services; Visit Provider Internal Medicine | DX: R00.0 Tachycardia, unspecified (principal) | CPT/HCPCS: 93010 ==

== ENCOUNTER → 2024-06-12 18:03 | Outpatient (BNV) | payer MEDICAID, SELFPAY | PROVIDERS: Visit Provider Radiology Diagnostic Radiology | DX: R07.9 Chest pain, unspecified (principal) | CPT/HCPCS: 71046 ==